=== PATIENT | male | born 1955 | race Hispanic/Latino ===

== ENCOUNTER → 2019-09-07 | Day surgery (SDC) | payer BC ==
[~2019-09-07] MED LIST: AMLODIPINE-BEN1 EAC4 PO; DEXAMETHASONE SOD PHOS INJ 4 MG/ML VIAL ONE; FENTANYL CITRATE/PF 100MCG/2 ML INJ ONE; HYDROCODONE/APAP 7.5MG-325MG 1 EA TAB ONE; KETOROLAC TROMETHAMINE 30 MG/ML VIAL ONE; LIDOCAINE HCL 2% LOCAL INJ 5 ML SDV VIAL INJ ONE; MIDAZOLAM HCL 2 MG/2 ML VIAL ONE; ONDANSETRON HCL INJ 2MG/ML 2ML 2 MG/ML VIAL ONE; PRAVASTATIN SOD10 MG PO; PROPOFOL IV EMULSION 10 MG/ML 20 ML VIAL ONE; SEVOFLURANE INHAL SOLN 250 ML PEN BTL ONE
[2019-09-07 08:15] LABS: BASOPHILS # (AUTO) 0.1 (0.0-0.1); EOSINOPHILS # (AUTO) 0.2 (0.0-0.4); EOSINOPHILS % 2.3 % (0.0-6.0); HEMATOCRIT 43.2 % (38.2-49.6); HEMOGLOBIN 14.2 g/dL (14.0-18.0); LYMPHOCYTES # (AUTO) 1.5 (1.0-3.2); MEAN CORPUSCULAR HEMOGLOBIN 29.8 pg (28-32); MEAN CORPUSCULAR HGB CONC 32.9 g/dL (31-35); MEAN CORPUSCULAR VOLUME 90.6 fL (81-99); MONOCYTES # (AUTO) 0.7 (0.2-0.8); MONOCYTES % 9.9 % (4.4-11.3); NEUTROPHILS # (AUTO) 4.6 (2.1-6.9); NEUTROPHILS % 65.5 % (38.7-80.0); PLATELET COUNT 239 x10e3/uL (140-360); RED BLOOD COUNT 4.77 x10e6/uL (4.3-5.7); RED CELL DISTRIBUTION WIDTH 13.2 % (11.7-14.4)
[2019-09-07 08:34] LABS: ANION GAP 13.6 mmol/L (8-16); BLOOD UREA NITROGEN 19 mg/dL (7-26); BUN/CREATININE RATIO 23 (6-25); CALCIUM 9.1 mg/dL (8.4-10.2); CARBON DIOXIDE 27 mmol/L (22-29); CHLORIDE 104 mmol/L (98-107); CREATININE, SERUM 0.84 mg/dL (0.72-1.25); EST GLOMERULAR FILTRATION RATE > 60 ML/MIN (60-); GLUCOSE 107 mg/dL (74-118); POTASSIUM 3.6 mmol/L (3.5-5.1); SODIUM 141 mmol/L (136-145)
--- NOTE | 2019-09-07 08:54 | Diagnostic Imaging Report ---
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 Otherwise, there is no evidence of pulmonary consolidation, pleural effusion, or pneumothorax. The cardiac size is within normal limits. Next Impression: 1. No radiographic evidence of acute cardiorespiratory disease. 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 Signed by: Dr. Ortiz Mixon MD on 09/07/2019 8:51 AM
[2019-09-07 11:15] VITALS: BP 136/82
--- NOTE | 2019-09-07 14:20 | Operative Report ---
DATE OF PROCEDURE: 09/07/2019 SURGEON: Yannick Delgadillo MD PREOPERATIVE DIAGNOSIS: Umbilical hernia. POSTOPERATIVE DIAGNOSIS: Umbilical hernia. OPERATION PERFORMED: Repair of umbilical hernia with medium Ventralex patch. DIET TECHNICIAN REGISTERED: RAISSA Laughlin. ANESTHESIA: General. COMPLICATIONS: None. ESTIMATED BLOOD LOSS: Minimal. DESCRIPTION OF PROCEDURE: With the patient lying in bed in the supine position under good general anesthesia, the abdomen was prepped with Betadine solution and draped in the usual manner. A semilunar subumbilical incision was made. It was carried down through the subcutaneous tissue down to the fascia. The hernia sac was then circumferentially encircled with normal fascia all the way around. The umbilicus was then detached from the hernia sac without opening the hernia sac and the hernia sac was then reduced back to the intra-abdominal cavity. The preperitoneal space was then developed without any difficulty. After this was done, a medium-sized Ventralex patch was then placed through the umbilical defect and deployed in the preperitoneal space without any difficulty and then the defect was closed transversely using interrupted sutures of 0 Ethibond anchoring the mesh with a repair. This gives a satisfactory closure without any tension. 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 After this was done, hemostasis was ascertained. The fascia was then infiltrated with 0.25% Marcaine with epinephrine. The umbilicus was then tacked back down to the midline fascia with 3-0 Vicryl. The subcutaneous tissue was approximated with 3-0 Vicryl and the skin was closed with interrupted vertical mattress sutures of 3-0 silk. A dressing was applied. The sponge, lap, and needle count was correct. The patient tolerated the procedure well and returned to the recovery room in stable condition. MD CAMELIA Schaefer/COLLEENL /[id number]
== END | disposition home or self-care (01) ==
LOC: OR 06:08
PROVIDERS: ATTEND Surgery
DX: K42.9 Umbilical hernia without obstruction or gangrene (principal); G47.33 Obstructive sleep apnea (adult) (pediatric); I10 Essential (primary) hypertension; E78.5 Hyperlipidemia, unspecified; Z01.810 Encounter for preprocedural cardiovascular examination; Z01.812 Encounter for preprocedural laboratory examination; Z01.818 Encounter for other preprocedural examination
CPT/HCPCS: 36415; 49585; 71046; 80048; 85025; 93005; C1781; J1100; J1885; J2001; J2250; J2405; J2704; J3010